=== PATIENT | female | born 1945 | race Native Hawaiian/Other Pacific Islander ===

== ENCOUNTER 2016-07-21 09:17 | Outpatient (CLI) | payer OTHER ==
[2016-07-21 10:07] LABS: POTASSIUM 3.6 mmol/L (3.6-5.2); SODIUM 137 mmol/L (136-145)
[2016-07-21 10:19] LABS: PLATELET COUNT 178 K/uL (152-353)
== END 2016-07-21 19:06 | disposition home or self-care (01) ==
LOC: LABW 09:17
PROVIDERS: Nurse Practitioner
DX: R73.09 Other abnormal glucose (principal); I10 Essential (primary) hypertension; E78.4 Other hyperlipidemia; R53.83 Other fatigue
CPT/HCPCS: 36415; 80053; 80061; 83036; 84443; 85027

== ENCOUNTER 2020-07-29 11:01 | Outpatient (CLI) | payer OTHER | END 2020-07-29 21:52 | disposition home or self-care (01) | LOC: INF 11:01 | PROVIDERS: ATTEND Internal Medicine | DX: Z23 Encounter for immunization (principal) | CPT/HCPCS: 96372 ==

== ENCOUNTER 2020-08-26 10:18 | Outpatient (CLI) | payer OTHER | END 2020-08-26 21:08 | disposition home or self-care (01) | LOC: INF 10:18 | PROVIDERS: ATTEND Internal Medicine | DX: Z23 Encounter for immunization (principal) | CPT/HCPCS: 96372 ==